=== PATIENT | female | born 1965 | race Caucasian/White ===

== ENCOUNTER 2020-07-08 15:32 | Outpatient (CLI) | payer BC, SELFPAY ==
--- NOTE | 2020-07-08 | ECG_ITS ---
Measurements Intervals [place] Rate: 86 P: 54 MA: 154 QRS: 51 QRSD: 98 T: 58 QT: 366 QTc: 439 Interpretive Statements SINUS RHYTHM NORMAL ECG Electronically Signed On 07-08-2020 16:48:49 MEDICAL LAB TECH INSTRUCTOR by Reggie Flores D.O.
== END 2020-07-08 15:33 | disposition home or self-care (01) ==
LOC: ANHIMG 15:36 → ANHCARD 15:36
PROVIDERS: PCP Family Medicine; Visit Provider Family Medicine
DX: Z01.810 Encounter for preprocedural cardiovascular examination (principal)
CPT/HCPCS: 93005

== ENCOUNTER 2020-10-26 15:39 | Outpatient (CLI) | payer BC, SELFPAY ==
--- NOTE | ~2020-10-26 | XR_ITS ---
EXAMINATION: XR abdomen obstructive series DATE: 10/26/2020 15:58 INDICATION: Unspecified abdominal pain TECHNIQUE: Upright and supine views of the abdomen were obtained. COMPARISON: 12/26/2005 FINDINGS: There are surgical changes in the left upper quadrant, likely related to gastric sleeve christin beverley. There are no dilated loops of bowel. There is no free intraperitoneal gas. Phleboliths are note d in the pelvis. There are airspace opacities of the left lung base. IMPRESSION: 1. Nonobstructive bowel gas pattern. 2. Left basilar airspace opacity, likely pneumonia. Reviewed, dictated and finalized at location A.
== END 2020-10-26 15:40 ==
PROVIDERS: PCP Family Medicine; Visit Provider Physician Assistant
DX: R10.9 Unspecified abdominal pain (principal)
CPT/HCPCS: 74019

== ENCOUNTER 2021-06-06 10:53 | Outpatient (CLI) | payer BC, SELFPAY ==
--- NOTE | ~2021-06-06 | US_ITS ---
EXAMINATION: US transvaginal EXAM DATE: 06/06/2021 11:25 INDICATION: R10.31 - Right lower quadrant pain. TECHNIQUE: Pelvic transvaginal sonogram was performed. There are multiple grayscale and Doppler imag es available for interpretation. There is no prior study for comparison. FINDINGS: Uterus measures 6.3 x 3.4 x 3.7 cm, and is morphologically normal. Endometrial stripe teo sures 4 mm, within normal limits. There is no free pelvic fluid. Right adnexa: The ovary measures 2.9 x 1.8 x 2.6 cm and is morphologically normal. Ovarian vascular f low confirmed. Left adnexa: The ovary is not identified. There is no adnexal mass. IMPRESSION: Unremarkable pelvic ultrasound exam. Reviewed, dictated and finalized at location B. DINING ROOM ATTENDANT
== END 2021-06-06 10:54 ==
PROVIDERS: PCP Family Medicine; Visit Provider Physician Assistant
DX: R10.31 Right lower quadrant pain (principal)
CPT/HCPCS: 76830

== ENCOUNTER 2021-10-19 10:51 | Emergency (ER) | payer BC, SELFPAY ==
[2021-10-19 10:56] VITALS: BP 130/93; PULSE 50; RESP 16; TEMP 36.4; O2SAT 100
--- NOTE | 2021-10-19 11:09 | ED.GENADULT ---
HPI - General Adult General Chief complaint: Abdominal Pain Stated complaint: LOWER BACK PAIN/NAUSEA/HEADACHE Time Seen by Provider: 10/19/21 11:09 Source: patient, RN notes reviewed and old records reviewed Mode of arrival: ambulatory Limitations: no limitations History of Present Illness HPI narrative: 56-year-old female who presents to [facility] with complaints of acute pain to her lumbar back with some nausea vomiting and diarrhea for the past 4 days. Patient reports that she has on going back problems and she was treated [facility] recently with a Toradol injection and some oral pain medication which helped decrease her pain. She states that she just lost her mother on Saturday and is grieving and states she is a mess. Patient states that she has had nausea vomiting and diarrhea for the past 4 days, last diarrhea episode was this morning, has been able to keep water down this morning but is nauseated.Patient states she has no radiation of pain from her back to her legs, states no tingling or numbness to legs denies any saddle paraesthesia, admits to spasms in lower back but reports can't take muscle relaxers will put her out. Related Data Home Medications Medication Instructions Recorded Confirmed bupropion HCl 300 mg 24 hr tablet, 300 mg PO QAM 05/25/21 10/19/21 extended release desvenlafaxine succinate 50 mg 150 mg PO DAILY tablet 05/25/21 10/19/21 tablet,extended release 24 hr zolpidem 10 mg tablet 10 mg PO QHS PRN 05/25/21 10/19/21 Allergies Allergy/AdvReac Type Severity Reaction Status Date / Time No Known Allergies Allergy Verified 10/19/21 10:56 Review of Systems Review of Systems: CONSTITUTIONAL: Denies fever, chills, or sweats. EYES: Denies visual changes, redness, or discharge. ENT: Denies rhinorrhea, congestion, sore throat, or otalgia. CARDIOVASCULAR: Denies chest pain, palpitations, or edema. RESPIRATORY: Denies cough or dyspnea. GASTROINTESTINAL: Denies abdominal pain,positive for nausea, vomiting, or diarrhea. GENITOURINARY: Denies dysuria or hematuria. SKIN: Denies rash or itching. MUSCULOSKELETAL: lumbar back pain with spasms no radiation into legs,no joint pain, or myalgia. NEUROLOGIC: Some intermittent headache,no numbness, or weakness. PSYCHIATRIC: Positive for anxiety or depression. All systems reviewed & are unremarkable except as noted in HPI and below PMFSH Past Medical History Medical History Depression Lumbar disc disease Surgical History Surgical History History of sleeve gastrectomy Social History Social History Second hand tobacco smoke exposure: No Alcohol intake: never Substance use: never Substance use type: does not use Comments At time of signature, agree with nursing past medical, surgical, social and family history. There is no relevant family history pertinent to the presenting complaint Exam Narrative: GENERAL: Well-appearing, well-nourished, and in no mild distress.tearful HEAD: Normocephalic, atraumatic. EYES: PERRLA and EOMI. ENT: Nares clear, no rhinorrhea or epistaxis. Mucous membranes moist.TM's normal with good light reflex, throat pink with no lesions or exudates or tonsil enlargement NECK: Supple. no lymphadenopathy CHEST: Clear to auscultation. No respiratory distress.SAO2 100% on room air HEART: Regular rate and rhythm. No murmur heard. Normal peripheral pulses. ABDOMEN: Soft, nontender, nondistended, normal active bowel sounds. episodes of nausea and vomiting with diarrhea for 4 days, no acute abdominal pain stated, some cramping type of discomfort when diarrhea, states stools watery denies any blood in stool or vomit, no bilious vomit. EXTREMITIES: Normal range of motion. No edema.denies any radiation of pain to legs from lower back pain. SKIN: Warm, dry, no rash. NEURO: No focal defi
[2021-10-19] MEDS: KETOROLAC (*BKC) 60 MG/2 ML VIAL IM (11:31)
== END 2021-10-19 11:25 | disposition home or self-care (01) ==
PROVIDERS: Emergency Provider Registered Nurse; PCP Family Medicine
DX: M54.50 Low back pain, unspecified (principal); R11.2 Nausea with vomiting, unspecified; R19.7 Diarrhea, unspecified; F32.A Depression, unspecified; Z98.84 Bariatric surgery status
CPT/HCPCS: 96372; 99213; G0463; J1885

== ENCOUNTER 2022-10-13 12:21 | Outpatient (CLI) | payer OTHER, SELFPAY ==
--- NOTE | ~2022-10-13 | MR_ITS ---
MRI of the left foot CLINICAL HISTORY: Neuroma TECHNIQUE: Axial T1-weighted, T2 fat-sat, T1 fat-sat images, sagittal T1-weighted and STIR images, an d coronal T1-weighted and T2 fat-sat images were performed. Following intravenous administration of 1 9 cc MultiHance gadolinium, T1-weighted fat-sat imaging was performed in the axial, coronal, and sagi ttal planes. FINDINGS: Bone marrow signals are unremarkable. No fracture or bone marrow edema seen. No evidence fo r osteitis. No periosteal reaction identified. Minimal joint effusion present at the first metatarsop halangeal joint. No significant degenerative joint disease evident. Flexor and extensor tendons are intact. No intermetatarsal bursitis. At the third interspace, between the third and fourth proximal phalanges, there is a 5 x 3 mm masslike lesion which is T1 hyperintens e, T2 hyperintense, with mild surrounding soft tissue edema on fluid sensitive sequences (Coronal buster ges 34). Lesion remains hyperintense on T1 fat-sat sequence. No other abnormal mass lesion identified. No intermetatarsal bursitis evident. IMPRESSION: 5 x 3 mm masslike lesion of the third interspace between the fourth proximal phalanges, which is hype rintense on T1-weighted and T2-weighted images, and minimal stranding soft tissue edema. Location and signal characteristics are somewhat atypical for Araiza's neuroma, which is typically T1 hypointense and located more between the metatarsal heads. Findings could reflect a proteinaceous or other compl ex small cystic mass versus possibly atypical neuroma. Reviewed, dictated and finalized at [facility]. IMPRESSION: 5 x 3 mm masslike lesion of the third interspace between the fourth proximal ph alanges, which is hyperintense on T1-weighted and T2-weighted images, and minim al stranding soft tissue edema. Location and signal characteristics are somewha t atypical for Araiza's neuroma, which is typically T1 hypointense and located more between the metatarsal heads. Findings could reflect a proteinaceous or ot her complex small cystic mass versus possibly atypical neuroma.
== END 2022-10-13 12:22 | disposition home or self-care (01) ==
PROVIDERS: PCP Podiatrist Foot & Ankle Surgery; Visit Provider Podiatrist Foot & Ankle Surgery
DX: G57.62 Lesion of plantar nerve, left lower limb (principal)
CPT/HCPCS: 73720; A9577

== ENCOUNTER 2023-01-18 10:15 | Emergency (ER) | payer BC, OTHER, SELFPAY ==
[2023-01-18 10:27] VITALS: BP 150/101; PULSE 84; RESP 16; TEMP 36.8; O2SAT 98
[2023-01-18] MEDS: ACETAMINOPHEN 500 MG TABLET 1000 MG PO (12:14)
[2023-01-18] MEDS: KETOROLAC (*BKC) 60 MG/2 ML VIAL IM (12:15)
--- NOTE | 2023-01-18 12:22 | ED.LOWEXIN ---
HPI - Extremity Injury (Lower) General Chief Complaint: Extremity Injury, Lower <GENET Montanez Last Filed: 01/18/23 17:41> Stated Complaint: right leg hematoma that needs drained <GENET Montanez Last Filed: 01/18/23 17:41> Time Seen by Provider: 01/18/23 10:27 <GENET Montanez Last Filed: 01/18/23 17:41> Source: patient <GENET Montanez Last Filed: 01/18/23 17:41> Mode of arrival: ambulatory <GENET Montanez Last Filed: 01/18/23 17:41> Limitations: no limitations <GENET Montanez Last Filed: 01/18/23 17:41> History of Present Illness HPI Narrative: Patient is a 57 y/o female who presents to the ED with c/o hematoma to her R morales. Patient reports she recently had surgery on her left foot and was wearing a postop shoe when she tripped on the postop shoe and fell down the stairs on 01/05. She sustained an injury to her right morales and has since developed a large hematoma to her right morales. Patient reports having severe pain to her right morales from the hematoma and states the hematoma has not decreased in size over the last couple weeks. She has been seen at several different outside facilities [facility] for this pain. Patient presents today wanting her hematoma drained. She has not taken anything today for the pain. She denies any numbness or tingling. She was seen at an outside ER 6 days ago and had a negative x-ray of her tibia/fibula, and negative venous Doppler ultrasound for DVT. Patient also would like her stitches removed from her left elbow, also sustained from the fall on 01/05. She states she was supposed to have the stitches removed a few days ago. She was told it may be starting to look infected and was prescribed Bactrim for this. <GENET Montanez Last Filed: 01/18/23 17:41> Related Data Home Medications: Home Medications Medication Instructions Recorded Confirmed bupropion HCl 300 mg 24 hr tablet, 300 mg PO QAM 05/25/21 11/28/22 extended release (Wellbutrin XL) zolpidem 10 mg tablet (Ambien) 10 mg PO QHS PRN Sleep 05/25/21 11/28/22 escitalopram oxalate 10 mg tablet 10 mg PO DAILY 11/28/22 11/28/22 <Connie Barrera PA-C - Last Filed: 01/18/23 17:41> Allergies/Adverse Reactions: Allergies Allergy/AdvReac Type Severity Reaction Status Date / Time No Known Allergies Allergy Verified 11/28/22 13:36 <Connie Barrera PA-C - Last Filed: 01/18/23 17:41> Review of Systems Review of Systems: CONSTITUTIONAL: Denies fever, chills, or sweats. CARDIOVASCULAR: Denies chest pain. RESPIRATORY: Denies dyspnea. GASTROINTESTINAL: Denies abdominal pain, nausea, vomiting. SKIN: See HPI. MUSCULOSKELETAL: See HPI. NEUROLOGIC: Denies tingling, numbness, or weakness. <Connie Barrera PA-C - Last Filed: 01/18/23 17:41> All systems reviewed & are unremarkable except as noted in HPI and below <Connie Barrera PA-C - Last Filed: 01/18/23 17:41> PMFSH Past Medical History Medical History: Medical History Depression Lumbar disc disease <Connie Barrera PA-C - Last Filed: 01/18/23 17:41> Surgical History Surgical History: Surgical History History of sleeve gastrectomy <Connie Barrera PA-C - Last Filed: 01/18/23 17:41> Social History Social History: Social History Smoking status: Never smoker Second hand tobacco smoke exposure: No Alcohol intake: never Substance use: never Substance use type: does not use Lack of Transportation: No Lack of Food: Never True Current Housing: I Have Housing Concerned About Future Housing: No Difficulty Paying Gas/Electric Bills:
[2023-01-18 12:30] VITALS: BP 146/88; PULSE 78; RESP 16; TEMP 36.8; O2SAT 98
[2023-01-18 13:30] VITALS: BP 136/84; PULSE 76; RESP 16; TEMP 36.7; O2SAT 98
== END 2023-01-18 13:47 | disposition home or self-care (01) ==
PROVIDERS: Emergency Provider Physician Assistant; PCP Family Medicine
DX: S80.11XA Contusion of right lower leg, initial encounter (principal); S59.902A Unspecified injury of left elbow, initial encounter; F32.A Depression, unspecified; Z48.02 Encounter for removal of sutures; W10.9XXA Fall (on) (from) unspecified stairs and steps, initial encounter
CPT/HCPCS: 96372; 99283; A9270; J1885